=== PATIENT | female | born 1975 | race Caucasian/White ===

== ENCOUNTER 2018-07-30 16:54 | Emergency (ER) | payer SELFPAY ==
[~2018-07-30] VITALS: Ht 162.6 cm; Wt 59.0 kg
[2018-07-30] MEDS ORDERED: ONDANSETRON HCL 4MG/2ML INJ IV ONE (18:00)
[2018-07-30 19:57] VITALS: BP 173/90
== END 2018-07-30 20:04 | disposition home or self-care (01) ==
LOC: ER 16:54
DX: E11.649 Type 2 diabetes mellitus with hypoglycemia without coma (principal); R41.82 Altered mental status, unspecified; I10 Essential (primary) hypertension; R11.0 Nausea; Z98.890 Other specified postprocedural states
CPT/HCPCS: 82962; 96374; 99283; J2405

== ENCOUNTER 2019-12-01 16:29 | Emergency (ER) | payer OTHER ==
[~2019-12-01] VITALS: Ht 160 cm; Wt 70.0 kg
[2019-12-01] MEDS ORDERED: LEVETIRACETAM 500MG PREMIX 100 ML IV ONE (17:15)
[2019-12-01] MEDS ORDERED: DEXTROSE 50% WATER 50ML SYRINGE IV ONE (17:15)
[2019-12-01 17:38] LABS: BASOPHILS % 0.7 % (0.0-2.0); EOSINOPHILS % 1.8 % (0.0-5.0); HEMATOCRIT. 36.8 % (36.0-48.0); HEMOGLOBIN. 12.1 g/dL (12.0-16.0); LYMPHOCYTES % 13.5 % (20.0-50.0); MEAN CORPUSCULAR HEMOGLOBIN 31.4 pg (28.0-32.0); MEAN CORPUSCULAR VOLUME 95.4 fL (81.0-99.0); MEAN PLATELET VOLUME 9.3 fl (7.4-10.4); MONOCYTES % 10.4 % (2.0-8.0); NEUTROPHILS % 73.6 % (40.0-76.0); PLATELET 148 x1000/uL (130-400); RED BLOOD CELL COUNT 3.86 mill/uL (4.2-5.4); RED CELL DISTRIBUTION WIDTH 17.2 % (11.6-14.6)
[2019-12-01 17:53] LABS: CHLORIDE 99 mEq/L (98-107)
[2019-12-01 17:58] LABS: HCG SCREEN NEGATIVE
[2019-12-01] MEDS ORDERED: POTASSIUM CHLORIDE 20MEQ TABLET SR PO ONE (18:15)
[2019-12-01 18:35] VITALS: BP 173/82
== END 2019-12-01 20:43 | disposition home or self-care (01) ==
LOC: ER 16:29
DX: G40.909 Epilepsy, unspecified, not intractable, without status epilepticus (principal); I12.0 Hypertensive chronic kidney disease with stage 5 chronic kidney disease or end stage renal disease; E11.22 Type 2 diabetes mellitus with diabetic chronic kidney disease; N18.6 End stage renal disease; Z99.2 Dependence on renal dialysis; Z79.4 Long term (current) use of insulin; Z79.84 Long term (current) use of oral hypoglycemic drugs; E11.649 Type 2 diabetes mellitus with hypoglycemia without coma
CPT/HCPCS: 36415; 80053; 82962; 84703; 85025; 96365; 96375; 99284; J1953

== ENCOUNTER 2022-08-10 04:59 | Emergency (ER) | payer OTHER ==
[~2022-08-10] VITALS: Ht 154.9 cm; Wt 65.0 kg
[2022-08-10 06:27] LABS: HEMATOCRIT. 31.2 % (36.0-48.0); HEMOGLOBIN. 10.2 g/dL (12.0-16.0); MEAN CORPUSCULAR HEMOGLOBIN 33.3 pg (28.0-32.0); MEAN CORPUSCULAR VOLUME 101.2 fL (81.0-99.0); PLATELET 131 x1000/uL (130-400); RED BLOOD CELL COUNT 3.08 mill/uL (4.2-5.4); RED CELL DISTRIBUTION WIDTH 17.1 % (11.6-14.6)
[2022-08-10 06:36] LABS: PROTHROMBIN TIME 11.1 sec (9.6-11.0)
[2022-08-10 06:48] LABS: CHLORIDE 99 mEq/L (98-107)
[2022-08-10 06:54] LABS: ETHANOL BLOOD < 10 mg/dL
[2022-08-10] MEDS ORDERED: ONDANSETRON HCL 4MG/2ML INJ IV ONE (07:15)
[2022-08-10 07:47] LABS: PLATELET ESTIMATE NORMAL
[2022-08-10] MEDS ORDERED: ONDANSETRON HCL 4MG/2ML INJ IV NR (09:30)
[2022-08-10] MEDS ORDERED: HYDRALAZINE 20MG/ML VIAL IV ONE (11:00)
[2022-08-10 11:26] VITALS: BP 160/62
== END 2022-08-10 11:26 | disposition short-term general hospital (02) ==
LOC: ER 04:59 → EDBEDREQ 07:10 → EDBEDREQSVC 07:10 → CANBEDREQ 07:35 → ER 11:26
DX: E11.22 Type 2 diabetes mellitus with diabetic chronic kidney disease (principal); N18.6 End stage renal disease; G93.49 Other encephalopathy; Z20.822 Contact with and (suspected) exposure to COVID-19; Z99.2 Dependence on renal dialysis; Z91.15 Patient's noncompliance with renal dialysis; Z88.8 Allergy status to other drugs, medicaments and biological substances
CPT/HCPCS: 36415; 70450; 71045; 80053; 80320; 83605; 84145; 85025; 85610; 87040; 87426; 93005; 96374; 96375; 99285; C9803; J0360; J2405; Z7610; G0480

== ENCOUNTER 2022-09-07 06:17 | Emergency (ER) | payer OTHER ==
[~2022-09-07] VITALS: Ht 165.1 cm; Wt 70.0 kg
[2022-09-07 06:58] LABS: BASOPHILS % 0.5 % (0.0-2.0); EOSINOPHILS % 3.2 % (0.0-5.0); HEMATOCRIT. 28.5 % (36.0-48.0); HEMOGLOBIN. 9.6 g/dL (12.0-16.0); MEAN CORPUSCULAR HEMOGLOBIN 32.6 pg (28.0-32.0); MEAN CORPUSCULAR VOLUME 97.2 fL (81.0-99.0); MEAN PLATELET VOLUME 9.8 fl (7.4-10.4); MONOCYTES % 1.8 % (2.0-8.0); NEUTROPHILS % 85.5 % (40.0-76.0); PLATELET 102 x1000/uL (130-400); RED BLOOD CELL COUNT 2.93 mill/uL (4.2-5.4)
[2022-09-07 06:59] LABS: CHLORIDE 98 mEq/L (98-107)
[2022-09-07] MEDS ORDERED: HYDRALAZINE 20MG/ML VIAL IV ONE (09:30)
[2022-09-07] MEDS ORDERED: LISINOPRIL 40MG TABLET PO ONE (09:30)
[2022-09-07 11:30] VITALS: BP 181/72
== END 2022-09-07 13:15 | disposition left against medical advice (07) ==
LOC: ER 06:17 → EDBEDREQSVC 07:32 → EDBEDREQ 07:32 → EDBEDREQTM 07:32 → ER 13:15 → CANBEDREQ 09-08 08:25
DX: R55 Syncope and collapse (principal); E11.22 Type 2 diabetes mellitus with diabetic chronic kidney disease; I12.0 Hypertensive chronic kidney disease with stage 5 chronic kidney disease or end stage renal disease; N18.6 End stage renal disease; Z20.822 Contact with and (suspected) exposure to COVID-19; Z99.2 Dependence on renal dialysis; Z88.8 Allergy status to other drugs, medicaments and biological substances
CPT/HCPCS: 36415; 70450; 71045; 80053; 82962; 84484; 85025; 93005; 96374; 99285; J0360

== ENCOUNTER 2022-09-13 22:59 | Emergency (ER) | payer OTHER ==
[~2022-09-13] VITALS: Ht 162.6 cm; Wt 68.0 kg
[2022-09-14 01:30] VITALS: BP 135/57
== END 2022-09-14 01:31 | disposition home or self-care (01) ==
LOC: ER 23:02
DX: E11.649 Type 2 diabetes mellitus with hypoglycemia without coma (principal); E11.22 Type 2 diabetes mellitus with diabetic chronic kidney disease; I12.0 Hypertensive chronic kidney disease with stage 5 chronic kidney disease or end stage renal disease; N18.6 End stage renal disease; Z99.2 Dependence on renal dialysis; Z88.8 Allergy status to other drugs, medicaments and biological substances; Z79.4 Long term (current) use of insulin
CPT/HCPCS: 82962; 99281